=== PATIENT | female | born 1995 | race Caucasian/White ===

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

== ENCOUNTER → 2020-06-12 | Outpatient (CLI) | payer MEDICARE, OTHER ==
[2020-06-12 18:14] LABS: RED BLOOD COUNT 5.03 M/UL (4.00-5.10); WHITE BLOOD COUNT 11.8 K/UL (4.5-11.0)
== END ==
LOC: LAB 17:37
PROVIDERS: Psychiatry & Neurology Child & Adolescent Psychiatry
DX: F25.0 Schizoaffective disorder, bipolar type (principal)
CPT/HCPCS: 85025

== ENCOUNTER → 2020-07-15 | Outpatient (CLI) | payer MEDICARE, OTHER ==
[2020-07-15 17:35] LABS: HEMOGLOBIN 11.7 gm/dl (12.3-15.3); RED BLOOD COUNT 4.96 M/UL (4.00-5.10); WHITE BLOOD COUNT 10.8 K/UL (4.5-11.0)
== END ==
LOC: LAB 17:03
PROVIDERS: Psychiatry & Neurology Child & Adolescent Psychiatry
DX: F25.0 Schizoaffective disorder, bipolar type (principal); Z79.899 Other long term (current) drug therapy
CPT/HCPCS: 85025

== ENCOUNTER → 2020-08-14 | Outpatient (CLI) | payer MEDICARE, OTHER ==
[2020-08-14 12:09] LABS: RED BLOOD COUNT 5.34 M/UL (4.00-5.10); WHITE BLOOD COUNT 9.8 K/UL (4.5-11.0)
== END ==
LOC: LAB
PROVIDERS: Psychiatry & Neurology Child & Adolescent Psychiatry
DX: F25.0 Schizoaffective disorder, bipolar type (principal); Z79.899 Other long term (current) drug therapy
CPT/HCPCS: 36415; 85025

== ENCOUNTER → 2020-09-12 | Outpatient (CLI) | payer MEDICARE, OTHER ==
[2020-09-12 16:51] LABS: RED BLOOD COUNT 5.08 M/UL (4.00-5.10); WHITE BLOOD COUNT 10.8 K/UL (4.5-11.0)
== END ==
LOC: LAB 15:40
PROVIDERS: Psychiatry & Neurology Child & Adolescent Psychiatry
DX: Z79.899 Other long term (current) drug therapy (principal)
CPT/HCPCS: 36415; 85025

== ENCOUNTER → 2020-10-14 | Outpatient (CLI) | payer MEDICARE, OTHER ==
[2020-10-14 19:30] LABS: HEMOGLOBIN 12.1 gm/dl (12.3-15.3); RED BLOOD COUNT 5.08 M/UL (4.00-5.10); WHITE BLOOD COUNT 10.5 K/UL (4.5-11.0)
== END ==
LOC: LAB 18:43
PROVIDERS: Psychiatry & Neurology Child & Adolescent Psychiatry
DX: F25.0 Schizoaffective disorder, bipolar type (principal); Z79.899 Other long term (current) drug therapy
CPT/HCPCS: 85025

== ENCOUNTER → 2020-11-12 | Outpatient (CLI) | payer MEDICARE, OTHER ==
[2020-11-12 19:49] LABS: HEMOGLOBIN 11.8 gm/dl (12.3-15.3); RED BLOOD COUNT 5.01 M/UL (4.00-5.10); WHITE BLOOD COUNT 10.4 K/UL (4.5-11.0)
== END ==
LOC: LAB 18:48
PROVIDERS: Psychiatry & Neurology Child & Adolescent Psychiatry
DX: Z51.81 Encounter for therapeutic drug level monitoring (principal); Z79.899 Other long term (current) drug therapy
CPT/HCPCS: 85025

== ENCOUNTER → 2020-12-13 | Outpatient (CLI) | payer MEDICARE, OTHER ==
[2020-12-13 17:54] LABS: HEMOGLOBIN 12.2 gm/dl (12.3-15.3); RED BLOOD COUNT 5.15 M/UL (4.00-5.10); WHITE BLOOD COUNT 11.6 K/UL (4.5-11.0)
== END ==
LOC: LAB 17:03
PROVIDERS: Psychiatry & Neurology Child & Adolescent Psychiatry
DX: Z51.81 Encounter for therapeutic drug level monitoring (principal)
CPT/HCPCS: 85025

== ENCOUNTER → 2021-01-13 | Outpatient (CLI) | payer MEDICARE, OTHER ==
[2021-01-13 16:21] LABS: HEMOGLOBIN 12.3 gm/dl (12.3-15.3); RED BLOOD COUNT 5.2 M/UL (4.00-5.10); WHITE BLOOD COUNT 12.2 K/UL (4.5-11.0)
== END ==
LOC: LAB 16:02
PROVIDERS: Psychiatry & Neurology Child & Adolescent Psychiatry
DX: Z51.81 Encounter for therapeutic drug level monitoring (principal); Z79.899 Other long term (current) drug therapy
CPT/HCPCS: 85025

== ENCOUNTER → 2021-03-19 | Outpatient (CLI) | payer MEDICARE, OTHER ==
[2021-03-19 18:03] LABS: HEMOGLOBIN 11.4 gm/dl (12.3-15.3); RED BLOOD COUNT 4.97 M/UL (4.00-5.10); WHITE BLOOD COUNT 11.5 K/UL (4.5-11.0)
== END ==
LOC: LAB 16:58
PROVIDERS: Psychiatry & Neurology Child & Adolescent Psychiatry
DX: Z51.81 Encounter for therapeutic drug level monitoring (principal); Z79.899 Other long term (current) drug therapy
CPT/HCPCS: 36415; 85025

== ENCOUNTER → 2021-04-17 | Outpatient (CLI) | payer MEDICARE, OTHER ==
[2021-04-17 15:07] LABS: RED BLOOD COUNT 5.03 M/UL (4.00-5.10); WHITE BLOOD COUNT 13.1 K/UL (4.5-11.0)
== END ==
LOC: LAB 14:31
PROVIDERS: Psychiatry & Neurology Child & Adolescent Psychiatry
DX: Z51.81 Encounter for therapeutic drug level monitoring (principal)
CPT/HCPCS: 36415; 85025

== ENCOUNTER → 2021-05-15 | Outpatient (CLI) | payer MEDICARE, OTHER ==
[2021-05-15 17:39] LABS: HEMOGLOBIN 11.7 gm/dl (12.3-15.3); RED BLOOD COUNT 5.1 M/UL (4.00-5.10); WHITE BLOOD COUNT 11.6 K/UL (4.5-11.0)
== END ==
LOC: LAB 16:54
PROVIDERS: Psychiatry & Neurology Child & Adolescent Psychiatry
DX: Z51.81 Encounter for therapeutic drug level monitoring (principal)
CPT/HCPCS: 36415; 85025

== ENCOUNTER → 2021-06-11 | Outpatient (CLI) | payer MEDICARE, OTHER ==
[2021-06-11 15:57] LABS: RED BLOOD COUNT 5.05 M/UL (4.00-5.10)
== END ==
LOC: LAB 15:41
PROVIDERS: Psychiatry & Neurology Child & Adolescent Psychiatry
DX: Z51.81 Encounter for therapeutic drug level monitoring (principal)
CPT/HCPCS: 36415; 85025

== ENCOUNTER → 2021-10-03 | Outpatient (CLI) | payer MEDICARE, OTHER ==
[2021-10-03 17:58] LABS: HEMOGLOBIN 12.9 gm/dl (12.3-15.3); RED BLOOD COUNT 5.23 M/UL (4.00-5.10); WHITE BLOOD COUNT 10.5 K/UL (4.5-11.0)
== END ==
LOC: LAB 17:31
PROVIDERS: Psychiatry & Neurology Child & Adolescent Psychiatry
DX: Z51.81 Encounter for therapeutic drug level monitoring (principal)
CPT/HCPCS: 85025

== ENCOUNTER → 2021-11-04 | Outpatient (CLI) | payer MEDICARE, OTHER ==
[2021-11-04 13:12] LABS: HEMOGLOBIN 12.9 gm/dl (12.3-15.3); RED BLOOD COUNT 5.12 M/UL (4.00-5.10); WHITE BLOOD COUNT 10.3 K/UL (4.5-11.0)
== END ==
LOC: LAB 12:37
PROVIDERS: Psychiatry & Neurology Child & Adolescent Psychiatry
DX: Z51.81 Encounter for therapeutic drug level monitoring (principal)
CPT/HCPCS: 36415; 85025

== ENCOUNTER → 2021-12-03 | Outpatient (CLI) | payer MEDICARE, OTHER ==
[2021-12-03 15:36] LABS: RED BLOOD COUNT 5.21 M/UL (4.00-5.10); WHITE BLOOD COUNT 12.4 K/UL (4.5-11.0)
== END ==
LOC: LAB 14:44
PROVIDERS: Psychiatry & Neurology Child & Adolescent Psychiatry
DX: Z51.81 Encounter for therapeutic drug level monitoring (principal)
CPT/HCPCS: 36415; 85025

== ENCOUNTER → 2021-12-31 | Outpatient (CLI) | payer MEDICARE, OTHER ==
[2021-12-31 16:50] LABS: HEMOGLOBIN 13.4 gm/dl (12.3-15.3); RED BLOOD COUNT 5.03 M/UL (4.00-5.10); WHITE BLOOD COUNT 10.7 K/UL (4.5-11.0)
== END ==
LOC: LAB 16:18
PROVIDERS: Psychiatry & Neurology Child & Adolescent Psychiatry
DX: Z51.81 Encounter for therapeutic drug level monitoring (principal)
CPT/HCPCS: 36415; 85025

== ENCOUNTER → 2022-01-27 | Outpatient (CLI) | payer MEDICARE, OTHER ==
[2022-01-27 17:27] LABS: HEMOGLOBIN 12.8 gm/dl (12.3-15.3); RED BLOOD COUNT 4.78 M/UL (4.00-5.10)
== END ==
LOC: LAB 16:15
PROVIDERS: Psychiatry & Neurology Child & Adolescent Psychiatry
DX: Z51.81 Encounter for therapeutic drug level monitoring (principal)
CPT/HCPCS: 36415; 85025

== ENCOUNTER → 2022-02-20 | Outpatient (CLI) | payer MEDICARE, OTHER ==
[2022-02-20 17:56] LABS: HEMOGLOBIN 13.6 gm/dl (12.3-15.3); RED BLOOD COUNT 4.91 M/UL (4.00-5.10); WHITE BLOOD COUNT 12.4 K/UL (4.5-11.0)
== END ==
LOC: LAB 17:37
PROVIDERS: Psychiatry & Neurology Child & Adolescent Psychiatry
DX: Z51.81 Encounter for therapeutic drug level monitoring (principal)
CPT/HCPCS: 85025